=== PATIENT | female | born 1995 | race Two or more races ===

== ENCOUNTER 2018-09-23 08:07 | Emergency (ER) | payer MEDICAID ==
[~2018-09-23] VITALS: Ht 162.6 cm; Wt 78.0 kg
[~2018-09-23 08:07] MED LIST: PRENCAP15
[2018-09-23] MEDS ORDERED: SODIUM CHLORIDE 0.9% 2,000 ML IV ONE ×2 (09:53→10:00)
[2018-09-23] MEDS ORDERED: diphenhdrAMINE HCL 50 MG/1 ML VL IV ONE (10:00)
[2018-09-23 10:01] VITALS: BP 111/57
[2018-09-23 10:31] LABS: Basophils # (auto) 0 uL; Basophils % (auto) 0.5 % (0.0-2.0); Eosinophils # (auto) 0 uL; Eosinophils % (auto) 0.5 % (0.0-7.0); Hematocrit 37.3 % (36.0-46.0); Hemoglobin 12.7 g/dL (12.2-16.2); Lymphocytes # (auto) 1.4 uL; Lymphocytes % (auto) 21.6 % (10.0-50.0); Mean Corpuscular Hemoglobin 30.1 pg (28.0-32.0); Mean Corpuscular Hgb Conc. 34.1 g/dL (32.0-36.0); Mean Corpuscular Volume 88.1 fL (80.0-100.0); Monocytes # (auto) 0.5 uL; Monocytes % (auto) 7.5 % (0.0-12.0); Neutrophils # (auto) 4.7 uL; Neutrophils % (auto) 69.9 % (37.0-80.0); Platelet Count (auto) 215 10^3/uL (140-450); Red Blood Cells 4.23 10^6/uL (4.0-5.20); Red Cell Distribution Width 13.1 % (11.8-14.3); White Blood Cell 6.7 10^3/uL (4.4-10.8)
[2018-09-23 10:39] LABS: INR 0.93 (0.9-1.15); Partial Thromboplastin Time 31.6 sec (23.78-33.04)
[2018-09-23 10:43] LABS: Albumin 3.1 g/dL (3.4-5.0); Calcium 8.2 mg/dL (8.5-10.1); Potassium 3.4 mmol/L (3.5-5.1)
[2018-09-23 10:49] LABS: BUN/Creatinine Ratio 11.4; Bilirubin, Total 0.2 mg/dL (0.2-1.0); Total Protein 6.5 g/dL (6.4-8.2)
== END 2018-09-23 12:24 | disposition home or self-care (01) ==
LOC: ER 08:07
DX: O26.891 Other specified pregnancy related conditions, first trimester (principal); E86.0 Dehydration; R42 Dizziness and giddiness; Z3A.14 14 weeks gestation of pregnancy
CPT/HCPCS: 36415; 76801; 80053; 84702; 85025; 85610; 85730; 94761; 96361; 96374; 99284; J1200

== ENCOUNTER 2019-01-19 08:36 | Observation (INO) | payer MEDICAID ==
[2019-01-19 09:28] LABS: Alcohol, Urine < 3.0 mg/dL (0-5); Amphetamine Screen, Urine NEGATIVE (NEGATIVE); Barbiturate Scree,Urine NEGATIVE (NEGATIVE); Benzodiazephine Screen, Urine NEGATIVE (NEGATIVE); Cannabinoid Screen, Urine NEGATIVE (NEGATIVE); Cocaine Screen, Urine NEGATIVE (NEGATIVE); Opiate Scree,Urine NEGATIVE (NEGATIVE); Phencyclidine Screen, Urine NEGATIVE (NEGATIVE)
[2019-01-19 09:46] LABS: Urine Bacteria FEW /hpf (None Seen); Urine Blood Negative /uL (Negative); Urine WBC 4 /hpf (0 - 5)
== END 2019-01-19 09:25 | disposition home or self-care (01) | DRG 566 ==
LOC: LDRP 08:36
PROVIDERS: ADMIT Obstetrics & Gynecology; ATTEND Obstetrics & Gynecology
DX: O23.43 Unspecified infection of urinary tract in pregnancy, third trimester (principal); R30.0 Dysuria; O23.593 Infection of other part of genital tract in pregnancy, third trimester; Z3A.31 31 weeks gestation of pregnancy
CPT/HCPCS: 59025; 80307; 81001; 81002; G0378

== ENCOUNTER 2019-02-23 19:31 | Observation (INO) | payer MEDICAID ==
[~2019-02-23] VITALS: Ht 162.6 cm; Wt 77.1 kg
[2019-02-23] MEDS ORDERED: ONDANSETRON HCL 4 MG/2 ML VIAL IV PRN (20:15)
[2019-02-23] MEDS ORDERED: LACTATED RINGER'S 1,000 ML IV ONE (20:15)
[2019-02-23] MEDS ORDERED: ONDANSETRON HCL 4 MG/2 ML VIAL ONE (20:36)
== END 2019-02-23 22:46 | disposition home or self-care (01) | DRG 566 ==
LOC: LDRP 19:31
PROVIDERS: ADMIT Specialist; ATTEND Specialist
DX: O21.2 Late vomiting of pregnancy (principal); O26.893 Other specified pregnancy related conditions, third trimester; R19.7 Diarrhea, unspecified; Z3A.36 36 weeks gestation of pregnancy
CPT/HCPCS: 59025; 81002; 87210; G0378; J2405; 96365; 96366; 96374

== ENCOUNTER 2019-03-13 09:55 | Observation (INO) | payer MEDICAID ==
[~2019-03-13] VITALS: Ht 165.1 cm; Wt 84.8 kg
[2019-03-13] MEDS ORDERED: LACTATED RINGER'S 1,000 ML IV ONE (10:45)
[2019-03-13] MEDS ORDERED: TERBUTALINE SULFATE 1 MG/ML 1ML VIAL SC SCH (10:45)
== END 2019-03-13 12:10 | disposition home or self-care (01) | DRG 566 ==
LOC: LDRP 09:55
PROVIDERS: ADMIT Specialist; ATTEND Specialist
DX: O26.893 Other specified pregnancy related conditions, third trimester (principal); R10.9 Unspecified abdominal pain; Z3A.38 38 weeks gestation of pregnancy
CPT/HCPCS: 59025; 81002; 96372; G0378; J3105; 96361

== ENCOUNTER 2019-03-14 07:45 | Inpatient (IN) | payer MEDICAID ==
[2019-03-14] VITALS (15 sets, daily range): BP systolic 108–132; BP diastolic 54–96
[~2019-03-14] VITALS: Ht 165.1 cm; Wt 84.8 kg
[2019-03-14] MEDS: LACTATED RINGER'S 1,000 ML IV SCH ×2 (08:10→09:56)
[2019-03-14 09:03] LABS: Basophils # (auto) 0 uL; Hemoglobin 10.5 g/dL (12.2-16.2); Lymphocytes # (auto) 1.9 uL; Neutrophils # (auto) 5.5 uL; Nucleated Red Blood Cells % 0.1 %
[2019-03-14 09:05] LABS: Basophils % (auto) 0.5 % (0.0-2.0); Eosinophils # (auto) 0 uL; Eosinophils % (auto) 0.6 % (0.0-7.0); Hematocrit 32.2 % (36.0-46.0); Lymphocytes % (auto) 23.6 % (10.0-50.0); Mean Corpuscular Hgb Conc. 32.6 g/dL (32.0-36.0); Mean Corpuscular Volume 79.5 fL (80.0-100.0); Monocytes # (auto) 0.4 uL; Monocytes % (auto) 5.5 % (0.0-12.0); Neutrophils % (auto) 69.8 % (37.0-80.0); Platelet Count (auto) 190 10^3/uL (140-450); Red Blood Cells 4.05 10^6/uL (4.0-5.20); Red Cell Distribution Width 14.4 % (11.8-14.3); White Blood Cell 7.9 10^3/uL (4.4-10.8)
[2019-03-14 09:11] LABS: Mean Corpuscular Hemoglobin 25.9 pg (28.0-32.0)
[2019-03-14 09:15] LABS: Albumin 2.4 g/dL (3.4-5.0); BUN/Creatinine Ratio 14.3; Calcium 8.2 mg/dL (8.5-10.1)
[2019-03-14 09:18] LABS: Bilirubin, Total 0.2 mg/dL (0.2-1.0)
[2019-03-14 09:20] LABS: INR 0.85 (0.9-1.15); Partial Thromboplastin Time 25.7 sec (23.64-32.05)
[2019-03-14 09:46] LABS: Urine Bacteria NONE SEEN /hpf (None Seen); Urine Blood 2+ /uL (Negative); Urine Specific Gravity 1.012 (1.001-1.035); Urine WBC 1 /hpf (0 - 5)
[2019-03-14] MEDS ORDERED: MIDAZOLAM HCL 1MG/1ML-2 ML VIAL ONE (10:06)
[2019-03-14] MEDS ORDERED: fentaNYL CITRATE 100 MCG/2 ML VL ONE (10:06)
[2019-03-14] MEDS ORDERED: MORPHINE SULF(PF) 0.5MG/ML 10ML VIAL ONE (10:06)
[2019-03-14] MEDS ORDERED: TETRACAINE 1% INJ 2 ML VIAL IJ ONE (10:07)
[2019-03-14] MEDS ORDERED: ONDANSETRON HCL 4 MG/2 ML VIAL IV PRN ×2 (10:30→11:30)
[2019-03-14] MEDS ORDERED: MORPHINE SULFATE 4 MG/ML SYR/VIAL IV PRN (10:30)
[2019-03-14] MEDS ORDERED: KETOROLAC TROMETH 30 MG/ML 1ML VIAL IV PRN ×2 (10:30→11:30)
[2019-03-14] MEDS ORDERED: ceFAZolin 1GM/50ML 50 ML IV SCH (10:30)
[2019-03-14] MEDS ORDERED: ceFAZolin 1GM VL ONE (10:34)
[2019-03-14] MEDS ORDERED: OXYTOCIN 10 UNIT/ML 10ML VIAL ONE (10:34)
[2019-03-14] MEDS ORDERED: PHENYLEPHRINE HCL 10 MG/ML VL ONE (10:35)
[2019-03-14] MEDS ORDERED: MIDAZOLAM HCL 1MG/1ML-2 ML VIAL IV PRN (11:30)
[2019-03-14] MEDS ORDERED: ePHEDrine SULFATE 50 MG/ML AMP IV PRN (11:30)
[2019-03-14] MEDS ORDERED: LABETALOL HCL 5 MG/ML 4ML SYRINGE IV PRN (11:30)
[2019-03-14] MEDS ORDERED: HYDROmorphone HCL 2 MG/ML VL IV PRN ×2 (11:30)
[2019-03-14] MEDS ORDERED: NALBUPHINE HCL 10 MG/1ml INJECTION SUBCUT ONE (11:30)
[2019-03-14] MEDS ORDERED: NALOXONE HCL 0.4 MG/ML VIAL IV PRN (11:30)
[2019-03-14] MEDS ORDERED: ONDANSETRON HCL 4 MG/2 ML VIAL IV ONE (11:30)
[2019-03-14] MEDS ORDERED: DexAMETHasone SOD PHOS 10MG/1ML VIAL INJ IV PRN (11:30)
--- NOTE | 2019-03-14 12:15 | NUR ---
Post Op for LDRP: Received patient from PACU via bed to room 7B, report received from Shivani Gonzalez CONSUMER MARKETING ANALYST on stable patient . Patient A/A/Ox4, abdominal binder and bilateral SCD's are in place, 20 unitsPitocin in 1000ml bag placed on pump and infusing per order, incisional site dressing clean/dry/intact and Plummer Catheter to gravity draining clear yellow urine. Incentive Spirometer at bedside and instruction on proper use with return demonstration done by patient. Pts fundus is 2 below umbilicus, firm, scant rubra bleeding noted on pad. No distress noted. Will continue to monitor.
[2019-03-14] MEDS: diphenhdrAMINE HCL 50 MG/1 ML VL IV PRN ×3 (12:49→22:00)
--- NOTE | 2019-03-14 13:15 | NUR ---
PT REPORT GIVEN TO Talia WADSWORTH RN ON STABLE PATIENT, RELINQUISHED CARE. NO DISTRESS NOTED.
--- NOTE | 2019-03-14 14:00 | NUR ---
Report received from Talia Betancourt RN on stable pt. Assumed care.
--- NOTE | 2019-03-14 14:29 | NUR ---
PT MEDICATED WITH MORPHINE 2MG IVP PER ORDERS FOR INCISIONAL PAIN RATING 8/10.
[2019-03-14] MEDS ORDERED: ACETAMINOPHEN IV 1000 MG/100ML (10MG/ML) IV ONE (15:30)
[2019-03-14] MEDS: LACT. RINGERS/OXYTOCIN 20UNITS 1,000 ML IV SCH ×2 (16:13→17:01)
--- NOTE | 2019-03-14 18:15 | NUR ---
Report given to night KATY Richard on stable pt. Relinquished care. Addendum: 03/14/19 at 1843 by Carina Higgins RN Amended: Links added.
[2019-03-14] MEDS: ceFAZolin 1GM/50ML 50 ML IV SCH (18:29)
--- NOTE | 2019-03-14 19:40 | NUR ---
Called regarding patient's itching that is not relieved with current benedryl order. Orders received to increase Benedryl IV to 50mg. Will follow orders.
[2019-03-14 19:52] LABS: Eosinophils # (auto) 0 uL; Hemoglobin 9.8 g/dL (12.2-16.2)
[2019-03-14 19:57] LABS: Basophils # (auto) 0 uL; Basophils % (auto) 0.4 % (0.0-2.0); Eosinophils % (auto) 0.4 % (0.0-7.0); Hematocrit 30.1 % (36.0-46.0); Mean Corpuscular Hemoglobin 26.1 pg (28.0-32.0); Mean Corpuscular Hgb Conc. 32.6 g/dL (32.0-36.0); Mean Corpuscular Volume 79.9 fL (80.0-100.0); Monocytes # (auto) 0.6 uL; Monocytes % (auto) 5.2 % (0.0-12.0); Neutrophils # (auto) 8.5 uL; Nucleated Red Blood Cells % 0.1 %; Platelet Count (auto) 172 10^3/uL (140-450); Red Blood Cells 3.77 10^6/uL (4.0-5.20); Red Cell Distribution Width 14.4 % (11.8-14.3); White Blood Cell 11.2 10^3/uL (4.4-10.8)
[2019-03-14] MEDS ORDERED: diphenhdrAMINE HCL 50 MG/1 ML VL IV PRN (21:00)
[2019-03-15] MEDS ORDERED: BISACODYL 10 MG RECT SUPP PR PRN (00:45)
[2019-03-15] MEDS: HYDROcodone-ACET 5/325MG TAB PO PRN ×5 (00:59→22:11)
[2019-03-15 03:00] VITALS: BP 114/64
--- NOTE | 2019-03-15 04:00 | NUR ---
Ambulation: Patient OOB with standby assistance by RN. Plummer catheter remains in place per 's orders. Patient ambulates in the room and brushes teeth at this time. Pericare teaching provided with returned demonstration by patient. Clean gown provided and bed linen changed. Patient ambulated back to bed with steady gait and no distress noted.
[2019-03-15] MEDS: ceFAZolin 1GM/50ML 50 ML IV SCH ×2 (04:31→12:41)
[2019-03-15] MEDS: SIMETHICONE 80 MG CHEWABLE TABLET PO SCH ×4 (05:43→22:11)
[2019-03-15 06:08] LABS: RPR Non Reactive (Non Reactive)
[2019-03-15 06:40] LABS: Basophils # (auto) 0 uL; Basophils % (auto) 0.4 % (0.0-2.0); Eosinophils # (auto) 0 uL; Eosinophils % (auto) 0.5 % (0.0-7.0); Hemoglobin 9.8 g/dL (12.2-16.2); Lymphocytes # (auto) 1.6 uL; Lymphocytes % (auto) 18.4 % (10.0-50.0); Mean Corpuscular Hemoglobin 26.1 pg (28.0-32.0); Mean Corpuscular Hgb Conc. 32.7 g/dL (32.0-36.0); Mean Corpuscular Volume 79.9 fL (80.0-100.0); Monocytes # (auto) 0.5 uL; Monocytes % (auto) 6.2 % (0.0-12.0); Neutrophils # (auto) 6.6 uL; Neutrophils % (auto) 74.5 % (37.0-80.0); Platelet Count (auto) 155 10^3/uL (140-450); Red Blood Cells 3.75 10^6/uL (4.0-5.20); Red Cell Distribution Width 14.5 % (11.8-14.3); White Blood Cell 8.8 10^3/uL (4.4-10.8)
[2019-03-15 07:00] VITALS: BP 111/67
[2019-03-15] MEDS: DOCUSATE SOD 100 MG CAP PO SCH ×2 (10:00→22:00)
[2019-03-15 11:06] VITALS: BP 117/77
--- NOTE | 2019-03-15 12:05 | NUR ---
REPORT GIVEN TO AMANDA Parrish RN PATIENT IN STABLE CONDITION.
--- NOTE | 2019-03-15 12:05 | NUR ---
PT REPORT RECEIVED FROM Luis CARRILLO RN ON STABLE PATIENT, ASSUMING CARE. NO S/S OF DISTRESS OR SOB NOTED.
[2019-03-15 15:00] VITALS: BP 118/74
[2019-03-15] MEDS: IBUPROFEN 800 MG TAB PO PRN (15:15)
--- NOTE | 2019-03-15 18:10 | NUR ---
Received report assumed care from Danna Giraldo RN.
--- NOTE | 2019-03-15 18:30 | NUR ---
Hearing screen in process, unable to initiate assessment, will follow up
[2019-03-15 19:00] VITALS: BP 118/67
--- NOTE | 2019-03-15 22:17 | NUR ---
Patient refused colace. "It gave me bad cramps earlier today". colace withheld
[2019-03-15 23:10] VITALS: BP 111/65
--- NOTE | 2019-03-16 00:36 | NUR ---
Reassessed patients respiratory rate. 18 bpm
[2019-03-16 03:00] VITALS: BP 123/71
[2019-03-16] MEDS: HYDROcodone-ACET 5/325MG TAB PO PRN ×3 (03:04→19:29)
[2019-03-16 07:00] VITALS: BP 145/85
--- NOTE | 2019-03-16 07:00 | NUR ---
Assessment complete. Board updated. Updated on poc, pain management, incision care, purpose of abdominal binder, use IS 10x hour to prevent pna, ambulate in hallway to reduce the risk of blood clots. Verbalized understanding of all information. Abdominal incision open to air, clean, dry, no redness, no ecchimosis, no edema, no drainage noted, edges well approximated. [address] Abdominal binder on. Call light in reach. Sd rails up x2. bed low.
[2019-03-16] MEDS: SIMETHICONE 80 MG CHEWABLE TABLET PO SCH ×4 (07:26→22:12)
--- NOTE | 2019-03-16 07:30 | NUR ---
pt complain of pain. See mar.
[2019-03-16] MEDS: IBUPROFEN 800 MG TAB PO PRN ×2 (07:31→16:41)
[2019-03-16] MEDS: DOCUSATE SOD 100 MG CAP PO SCH ×2 (09:46→22:00)
--- NOTE | 2019-03-16 09:46 | NUR ---
Pt refused stool softner. Stated it causes her to have severe abdominal cramping.
[2019-03-16 11:00] VITALS: BP 121/61
[2019-03-16 15:00] VITALS: BP 125/76
--- NOTE | 2019-03-16 17:00 | NUR ---
IV removal IV DC'd with sterile technique, catheter fully intact. Pressure dressing applied to site. Patient tolerated procedure well. Discharged with aftercare instructions per MD.
[2019-03-16 19:00] VITALS: BP 123/70
[2019-03-16 22:55] VITALS: BP 118/63
[2019-03-17] MEDS: IBUPROFEN 800 MG TAB PO PRN (01:20)
[2019-03-17 03:00] VITALS: BP 109/65
[2019-03-17] MEDS: HYDROcodone-ACET 5/325MG TAB PO PRN (03:57)
[2019-03-17] MEDS: SIMETHICONE 80 MG CHEWABLE TABLET PO SCH (06:15)
--- NOTE | 2019-03-17 06:45 | NUR ---
Assessment completed. Updated on POC, pain management, need to ambulate, pericare, incision care, orders to removed clary, s/s of infection, breast care, possible dc home today. Verbalized understanding of all information. Board updated, call light in reach, sd rails up x2, bed low.
[2019-03-17 07:00] VITALS: BP 114/64
--- NOTE | 2019-03-17 07:00 | NUR ---
Dr Calvin made rounds with KATY Mcintosh. Orders received.
--- NOTE | 2019-03-17 07:50 | NUR ---
C/S Staple Removal DC Note: Orders received to remove clary. Clary removed using sterile technique. Lower abdominal incision approximated, no drainage/redness/inflammation visualized at time of removal. Steri-strips applied. Education provided on incisional care. Patient verbalized understanding and willingness to comply to instructions/teaching provided.
--- NOTE | 2019-03-17 09:00 | NUR ---
Discharge: Discharge instructions given as ordered. Pt encouraged to follow up with DIRECTOR FOOD AND BEVERAGE as instructed. All questions and concerns addressed. Patient verbalized understanding. Medication reconciliation completed and copy given to patient. All required/requested vaccines given and copies of vaccinations given to patient. Patient encouraged to prepare to depart unit.
--- NOTE | 2019-03-17 09:20 | NUR ---
Discharge: Patient taken to vehicle via ambulation with all personal belongings, accompanied by staff and family member. No distress noted at time of departure, no adverse changes in status since initial assessment.
== END 2019-03-17 09:15 | disposition home or self-care (01) | DRG 540 ==
LOC: LDRP 07:45
PROVIDERS: ADMIT Obstetrics & Gynecology; ATTEND Obstetrics & Gynecology
PROC: 0UL50CZ Occlusion of Right Fallopian Tube with Extraluminal Device, Open Approach (ICD-10-PCS; 2019-03-14)
PROC: 10D00Z1 Extraction of Products of Conception, Low, Open Approach (ICD-10-PCS; principal; 2019-03-14 10:15)
DX: O34.211 Maternal care for low transverse scar from previous cesarean delivery (principal); N73.6 Female pelvic peritoneal adhesions (postinfective); Z30.2 Encounter for sterilization; Z37.0 Single live birth; O99.89 Other specified diseases and conditions complicating pregnancy, childbirth and the puerperium; Z3A.39 39 weeks gestation of pregnancy
CPT/HCPCS: 36415; 51702; 59025; 80053; 81001; 81002; 85025; 85610; 85730; 86592; 86850; 86900; 86901; 94760; 96361; 96374; 96375; G0378; J0131; J0690; J2250; J2590

== ENCOUNTER 2020-03-06 20:05 | Emergency (ER) | payer MEDICAID ==
[~2020-03-06] VITALS: Ht 165.1 cm; Wt 85.7 kg
[2020-03-06 20:36] LABS: Urine WBC None Seen /hpf (0 - 5)
[2020-03-06 20:48] LABS: Urine Bacteria NONE SEEN /hpf (None Seen); Urine Blood 2+ /uL (Negative); Urine Mucus FEW (None Seen); Urine Specific Gravity 1.035 (1.001-1.035)
[2020-03-06 21:48] LABS: Basophils # (auto) 0.1 10 ^3/uL (0-0.2); Eosinophils # (auto) 0.2 10 ^3/uL (0-0.8); Hemoglobin 13.4 g/dL (12.2-16.2); Monocytes # (auto) 0.6 10 ^3/uL (0-1.3); Neutrophils # (auto) 5.7 10 ^3/uL (1.6-8.6); Nucleated Red Blood Cells % 0.2 %; White Blood Cell 9.7 10^3/uL (4.4-10.8)
[2020-03-06 21:49] LABS: Basophils % (auto) 0.6 % (0.0-2.0); Eosinophils % (auto) 1.6 % (0.0-7.0); Hematocrit 42.6 % (36.0-46.0); Lymphocytes # (auto) 3.3 10 ^3/uL (0.4-5.4); Lymphocytes % (auto) 33.4 % (10.0-50.0); Mean Corpuscular Hgb Conc. 31.4 g/dL (32.0-36.0); Mean Corpuscular Volume 82.6 fL (80.0-100.0); Monocytes % (auto) 6.3 % (0.0-12.0); Neutrophils % (auto) 58.1 % (37.0-80.0); Platelet Count (auto) 283 10^3/uL (140-450); Red Blood Cells 5.16 10^6/uL (4.0-5.20); Red Cell Distribution Width 16.3 % (11.8-14.3)
[2020-03-06 22:07] LABS: Albumin 4.4 g/dL (3.4-5.0); BUN/Creatinine Ratio 15.1; Calcium 8.9 mg/dL (8.5-10.1); Potassium 3.4 mmol/L (3.5-5.1)
[2020-03-06 22:09] LABS: Bilirubin, Total 0.3 mg/dL (0.2-1.0); Total Protein 8.6 g/dL (6.4-8.2)
[2020-03-07 01:04] VITALS: BP 118/60
== END 2020-03-07 01:39 | disposition home or self-care (01) ==
LOC: ER 20:05
DX: K80.20 Calculus of gallbladder without cholecystitis without obstruction (principal)
CPT/HCPCS: 36415; 76705; 80053; 81001; 84702; 85025

== ENCOUNTER 2022-08-16 02:06 | Emergency (ER) | payer BC, MEDICAID ==
[~2022-08-16] VITALS: Ht 165.1 cm; Wt 72.0 kg
[2022-08-16 02:51] LABS: Basophils # (auto) 0 10 ^3/uL (0-0.2); Basophils % (auto) 0.2 % (0.0-2.0); Eosinophils # (auto) 0.1 10 ^3/uL (0-0.8); Eosinophils % (auto) 0.7 % (0.0-7.0); Hematocrit 42.8 % (36.0-46.0); Hemoglobin 14.6 g/dL (12.2-16.2); Lymphocytes % (auto) 7.4 % (10.0-50.0); Mean Corpuscular Hemoglobin 28.9 pg (28.0-32.0); Mean Corpuscular Hgb Conc. 34.2 g/dL (32.0-36.0); Mean Corpuscular Volume 84.5 fL (80.0-100.0); Monocytes # (auto) 0.7 10 ^3/uL (0-1.3); Monocytes % (auto) 5.2 % (0.0-12.0); Neutrophils # (auto) 11.5 10 ^3/uL (1.6-8.6); Neutrophils % (auto) 86.5 % (37.0-80.0); Red Blood Cells 5.06 10^6/uL (4.0-5.20); Red Cell Distribution Width 13.6 % (11.8-14.3); White Blood Cell 13.3 10^3/uL (4.4-10.8)
[2022-08-16 03:10] LABS: Albumin 4.1 g/dL (3.4-5.0); BUN/Creatinine Ratio 14.9; Calcium 8.9 mg/dL (8.5-10.1); Potassium 3.8 mmol/L (3.5-5.1)
[2022-08-16 03:14] LABS: Bilirubin, Total 0.4 mg/dL (0.2-1.0); Total Protein 7.6 g/dL (6.4-8.2)
[2022-08-16 03:26] LABS: Urine Bacteria NONE SEEN /hpf (None Seen); Urine Mucus FEW (None Seen); Urine WBC 10 /hpf (0 - 5)
[2022-08-16 03:30] LABS: Urine Blood 4+ /uL (Negative)
[2022-08-16] MEDS ORDERED: NITROFURANTOIN 100 mg CAP PO ONE (05:45)
[2022-08-16] MEDS ORDERED: NITR-87 PO (05:47)
[2022-08-16 05:50] VITALS: BP 119/84
== END 2022-08-16 06:01 | disposition home or self-care (01) ==
LOC: ER 02:06
DX: N39.0 Urinary tract infection, site not specified (principal); R11.2 Nausea with vomiting, unspecified
CPT/HCPCS: 36415; 74176; 80053; 81001; 81025; 83690; 85025

== ENCOUNTER 2024-12-31 15:43 | Emergency (ER) | payer MEDICAID, OTHER ==
[~2024-12-31 15:43] MED LIST changes: +NITR-87 PO; -PRENCAP15
--- NOTE | 2024-12-31 16:15 | ED.PDOC ---
HPI (NEURO) HPI Comments 39y F who presents to the ED via EMS for chief complaint of headahce. 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 Pt states she suddenly felt weak as if she was going to pass out but did not have any associated syncopal episode. Pt states after this vomiting episode, she started to have headache which has persisted since with associated generalized weakness and staff called EMS after pt came out of restroom. EMS states pt had stable vitals upon arrival and upon arrival to the ED and states was noted to be dry heaving in ambulance throughout prior to ED arrival with no noted vomiting episode. Pt now in the ED, is a0x04 but appear somnolent and otherwise states she is having a generalized headache but denies any other symptoms at this time. Time Seen by MD: 16:10 Reviewed Notes: Supervisor Composing Room Notes, Medications Information Source: Patient, Emergency Med Personnel Mode of Arrival: EMS Brought in by: EMS Severity: Moderate Dizziness/Weakness Severity: Does not affect activitie Headache Severity: Moderate Timing: Hours Duration: Since onset Prehospital treatment: None Headache Location: Generalized Weakness Location: Generalized Onset: At rest Circumstances: Spontaneous Symptoms: Faintness, Near syncope, Weakness History of: None Modifying factors: Nothing Associated Signs and Symptoms: Headache, Nausea, Vomiting Past Medical History PAST MEDICAL HISTORY: Denies 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: 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 History: Denies all 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 TECHNICIAN Hx Family History Family History: Unknown Social History Smoker: Non-Smoker Alcohol: Denies ETOH Use Drugs: Denies Drug Use Lives In: Home Constitutional: denies: chills, diaphoresis, fatigue, fever, malaise, sweats, weakness, others EENTM: denies: blurred vision, double vision, ear bleeding, ear discharge, ear drainage, ear pain, ear ringing, eye pain, eye redness, hearing loss, mouth pain, mouth swelling, nasal discharge, nose bleeding, nose congestion, nose pain, photophobia, tearing, throat pain, throat swelling, voice changes, others Respiratory: denies: cough, hemoptysis, orthopnea, SOB at rest, shortness of breath, SOB with excertion, stridor, wheezing, others Cardiovascular: denies: chest pain, dizzy spells, diaphoresis, Dyspnea on exertion, edema, irregular heart beat, left arm pain, lightheadedness, palpitations, PND, syncope, others Gastrointestinal: reports: hematemesis, nausea, vomiting; denies: abdomen distended, abdominal pain, blood streaked bowels, constipated, diarrhea, dysphagia, difficulty swallowing, melena, poor appetite, poor fluid intake, rectal bleeding, rectal pain, others Genitourinary: denies: abnormal vagina bleeding, burning, dyspareunia, dysuria, flank pain, frequency, hematuria, incontinence, pain, , vagina discharge, urgency, others Neurological: denies: dizziness, fainting, headache, left sided numbness, left sided weakness, numbness, paresthesia, pre-existing deficit, right sided numbness, right sided weakness, seizure, speech problems, tingling, tremors, weakness, others Musculoskeletal: denies: back pain, gout, joint pain, joint swelling, muscle pain, muscle stiffness, neck pain, others Integumetry: denies: bruises, change in color, change in hair/nails, dryness, laceration, lesions, lumps, rash, wounds, others Allergic/Immunocompromised: denies: Difficulty Healing, Frequent Infections, Hives, Itching, others Hematologic/Lymphatic: denies: anemia, blood clots, easy bleeding, easy bruising, swollen glands, others Endocrine: denies: excessive hunger, excessive sweating, excessive thirst, excessive urination, flushing, intolerance to cold, intolerance to heat, unexplained weight gain, unexplained weight loss, others Psychiatric: denies: anxiety, bipolar disorder, depression, hopeless, panic disorder, schizophrenia, sleepless, suicidal, others All Other Systems: Reviewed and Negative Physical Exam General Appearance: Moderate Distress HEENT: Normal ENT Inspection, Pharynx Normal, TMs Normal Neck: Full Range of Motion, Non-Tender, Normal, Normal Inspection Respiratory: Chest Non-Tender, Lungs Clear, No Accessory Muscle Use, No Respiratory Distress, Normal Breath Sounds Cardiovascular: No Edema, No JVD, No Murmur, No Gallop, Normal Peripheral Pulses, Regular Rate/Rhythm Breast Exam: Deferred Gastrointestinal: No Organomegaly, Non Tender, No Pulsatile Mass, Normal Bowel Sounds, Soft Genitalia: Deferred Pelvic: Deferred Rectal: Deferred Extremities: No calf tenderness, Normal capillary refill, Normal inspection, Normal range of motion, Non-tender, No pedal edema Musculoskeletal : Apperance: Normal Neurologic: photographer portrait II-XII nml as Tested, No Motor Deficits, Normal Affect, No Sensory Deficits, Other (The patient's seems somewhat confused see me in somewhat postictal) Cerebellar Function: Unable to Test Reflexes: Normal Skin: Dry, Normal Color, Warm Lymphatic: No Adenopathy Was a procedure done? Was a procedure done?: No Differential Diagnosis (SZ) General Weakness: Anemia, Dehydration, Electrolyte imbalance, Encephalopathy, Hypoglycemia, Hypotension, Hypovolemia, Vertigo: central, Vertigo: peripheral, Other (UTI,) Headache: Migraine, Closed Head Injury X-Ray, Labs, Meds, VS Vital Signs Date Time Temp Pulse Resp B/P (MAP) Pulse Ox O2 Delivery O2 Flow Rate FiO2 12/31/24 16:58 97.2 116 20 136/86 (103) 99 97.2 12/31/24 16:42 98 20 98 Room Air* 0 21 Lab Test 12/31/24 18:40 12/31/24 16:32 Range/Units Urine Color Colorless Yellow Urine Clarity Clear Clear Urine pH 7.0 5.0-9.0 Urine Specific Huger 1.004 1.001-1.035 Urine Protein Negative Negative Urine Ketones 1+ H Negative Urine Blood Negative Negative /uL Urine Nitrite Negative Negative Urine Bilirubin Negative Negative Urine Urobilinogen Normal Negative mg/dL Urine Leukocyte Esterase Negative Negative /uL Urine RBC None seen 0 - 4 /hpf Urine Microscopic WBC 1 0-5 /HPF Urine Squamous Epithelial Cells Few <5 /hpf Urine Bacteria None seen None Seen /hpf Urine Glucose Normal Normal mg/dL Urine Test Negative Negative Urine Opiates Screen Neg NEGATIVE Urine Fentanyl Screen Neg NEGATIVE Urine Barbiturates Screen Neg NEGATIVE Urine Phencyclidine Screen Neg NEGATIVE Urine Amphetamines Screen Neg NEGATIVE Urine Benzodiazepines Screen Neg NEGATIVE Urine Cocaine Screen Neg NEGATIVE Urine Cannabinoids Screen Neg NEGATIVE White Blood Count 13.4 H 4.4-10.8 10^3/uL Red Blood Count 4.56 4.0-5.20 10^6/uL Hemoglobin 14.0 12.2-16.2 g/dL Hematocrit 42.0 36.0-46.0 % Mean Corpuscular Volume 92.1 80.0-100.0 fL Mean Corpuscular Hemoglobin 30.8 28.0-32.0 pg Mean Corpuscular Hemoglobin Concent 33.4 32.0-36.0 g/dL Red Cell Distribution Width 13.0 11.8-14.3 % Platelet Count 282 140-450 10^3/uL Mean Platelet Volume 7.9 6.9-10.8 fL Neutrophils (%) (Auto) 81.6 H 37.0-80.0 % Lymphocytes (%) (Auto) 13.7 10.0-50.0 % Monocytes (%) (Auto) 4.2 0.0-12.0 % Eosinophils (%) (Auto) 0.2 0.0-7.0 % Basophils (%) (Auto) 0.3 0.0-2.0 % Neutrophils # (Auto) 10.9 H 1.6-8.6 10 ^3/uL Lymphocytes # (Auto) 1.8 0.4-5.4 10 ^3/uL Monocytes # (Auto) 0.6 0-1.3 10 ^3/uL Eosinophils # (Auto) 0 0-0.8 10 ^3/uL Basophils # (Auto) 0 0-0.2 10 ^3/uL Nucleated Red Blood Cells 0.0 % Sodium Level 141 136-145 mmol/L Potassium Level 3.5 3.5-5.1 mmol/L Chloride Level 106 98-107 mmol/L Carbon Dioxide Level 24 20-31 mmol/L Anion Gap 11 5-15 Blood Urea Nitrogen 6 L 9-23 mg/dL Creatinine 0.76 0.550-1.02 mg/dL Glomerular Filtration Rate Calc 102 >90 mL/min BUN/Creatinine Ratio 7.9 L 10.0-20.0 Serum Glucose 104 74-106 mg/dL Calcium Level 9.8 8.7-10.4 mg/dL Current Medications Medications (Trade) Dose Ordered Sig/Rhea Route Start Time Stop Time Status Last Admin Sodium Chloride 1,000 ml @ 1,000 mls/hr Q1H ONCE IV 12/31/24 16:15 12/31/24 17:14 DC 12/31/24 16:45 Lorazepam (Ativan Inj) 1 mg ONCE ONCE IV 12/31/24 16:15 12/31/24 16:16 DC 12/31/24 16:56 IV Hep-Lock was established The patient was given a 1 L bolus of normal saline The patient was given Ativan 1 mg IV push The patient's CBC and chemistry panel are within normal limits The urine test is negative and the urine tox is negative The patient was now awake and is stating that she has a history of three seizures in the past but has seen a neurologist and had a complete workup which was negative We encouraged her to follow up with her doctor for possible seizures. The patient understands and agrees with the management. The patient was being discharged with a friend. The patient was complaining of some jaw pain so was given acetaminophen 650 mg by Time of 1ST Reevaluation: 16:40 Reevaluation 1ST: Unchanged Time of 2ND Reevaluation: 20:21 Reevaluation 2ND: Resolved Patient Education/Counseling: Diagnosis, Treatment, Prognosis, Need For Follow Up Family Education/Counseling: Diagnosis, Treatment, Prognosis, Need For Follow Up Departure 1 Departure Time of Disposition: 20:22 Impression: Primary Impression: Seizure-like activity Disposition: 01 HOME / SELF CARE / HOMELESS Condition: Fair Discharged With: Self, Friend Critical Care Note Critical Care Time?: No Stability Stability form required: No Heart Score Heart Score: Heart Score Response (Comments) Value History N/A 0 EKG N/A 0 Age N/A 0 Risk Factors N/A 0 Troponin N/A 0 Total 0 I personally scribed for ELLEN RAPP MD ([email or web address]) on 12/31/24 at 16:15. Electronically submitted by Chantal Casillas ([email or web address]). ELLEN RAPP MD Dec 31, 2024 16:15
[2024-12-31 16:42] VITALS: PULSE 98; RESP 20; O2SAT 98
[2024-12-31] MEDS: SODIUM CHLORIDE 0.9% 1,000 ML IV ONE (16:45)
[2024-12-31 16:47] LABS: Basophils # (auto) 0 10 ^3/uL (0-0.2); Basophils % (auto) 0.3 % (0.0-2.0); Eosinophils # (auto) 0 10 ^3/uL (0-0.8); Eosinophils % (auto) 0.2 % (0.0-7.0); Lymphocytes # (auto) 1.8 10 ^3/uL (0.4-5.4); Lymphocytes % (auto) 13.7 % (10.0-50.0); Mean Corpuscular Hemoglobin 30.8 pg (28.0-32.0); Mean Corpuscular Hgb Conc. 33.4 g/dL (32.0-36.0); Mean Corpuscular Volume 92.1 fL (80.0-100.0); Monocytes # (auto) 0.6 10 ^3/uL (0-1.3); Monocytes % (auto) 4.2 % (0.0-12.0); Neutrophils # (auto) 10.9 10 ^3/uL (1.6-8.6); Neutrophils % (auto) 81.6 % (37.0-80.0); Platelet Count (auto) 282 10^3/uL (140-450); Red Blood Cells 4.56 10^6/uL (4.0-5.20); White Blood Cell 13.4 10^3/uL (4.4-10.8)
[2024-12-31] MEDS: LORazepam 2MG/ML-1ML VIAL IV ONE (16:56)
[2024-12-31 16:57] LABS: Chloride 106 mmol/L (98-107); Potassium 3.5 mmol/L (3.5-5.1); Sodium 141 mmol/L (136-145)
[2024-12-31 16:58] LABS: Anion Gap 11 (5-15); Calcium 9.8 mg/dL (8.7-10.4); Carbon Dioxide 24 mmol/L (20-31)
[2024-12-31 17:03] LABS: BUN/Creatinine Ratio 7.9 (10.0-20.0); Blood Urea Nitrogen 6 mg/dL (9-23); Glucose 104 mg/dL (74-106)
[2024-12-31 19:22] LABS: Urine Bacteria None Seen /hpf (None Seen)
[2024-12-31 19:48] LABS: Urine Blood Negative /uL (Negative); Urine Clarity Clear (Clear); Urine Color Colorless (Yellow); Urine Protein, UAD Negative (Negative); Urine Specific Gravity 1.004 (1.001-1.035); Urine Squamous Epithelial Cell FEW /hpf (<5); Urine Urobilinogen Normal (Negative); Urine WBC 1 /HPF (0-5)
[2024-12-31 19:56] LABS: Amphetamine Screen, Urine Neg (NEGATIVE); Barbiturate Scree,Urine Neg (NEGATIVE); Benzodiazephine Screen, Urine Neg (NEGATIVE); Cannabinoid Screen, Urine Neg (NEGATIVE); Cocaine Screen, Urine Neg (NEGATIVE); Opiate Scree,Urine Neg (NEGATIVE); Phencyclidine Screen, Urine Neg (NEGATIVE)
[2024-12-31 20:32] VITALS: BP 132/84; PULSE 105; RESP 20; TEMP 97.6; O2SAT 10
[2024-12-31] MEDS: ACETAMINOPHEN 325 MG TAB PO ONE (20:32)
== END 2024-12-31 20:35 | disposition home or self-care (01) ==
LOC: MERGE 15:43 → ER 15:43 → EDBD 15:43 → ER 20:35
DX: R51.9 Headache, unspecified (principal); R11.10 Vomiting, unspecified; R53.1 Weakness
CPT/HCPCS: 36415; 80048; 80307; 81001; 81025; 85025; 96361; 96374; 99283; J2060; J7030

== ENCOUNTER 2025-03-30 06:14 | Emergency (ER) | payer MEDICAID ==
[~2025-03-30] VITALS: Ht 165.1 cm; Wt 58.0 kg
--- NOTE | 2025-03-30 06:38 | ED.PDOC ---
History of Present Illness HPI Comments 29-year-old female brought in by EMS presents with a chief complaint of nausea, vomiting, and diarrhea x since 2100 last night. Patient states that she is currently not having any abdominal pain. Patient is actively dry heaving on EMS gurney. Patient mentions that she is on Wegovy and has been for the past 6 months. Patient was given 8mg of Zofran and 500cc IVF by EMS en route. Time Seen by MD: 06:30 Primary Care Provider: NO PCP Reviewed Notes: Medications, Allergies Allergies: Coded Allergies: NO KNOWN ALLERGIES (Unverified , 06/02/13) Home Meds Active Scripts Nitrofurantoin Monohydrate Mac (Macrobid) 100 Mg Cap, 100 MG PO BID, #14 CAP Prov:DENISSE GONGORA MD 08/16/22 Information Source: Patient, Emergency Med Personnel Mode of Arrival: EMS Severity: Moderate Timing: Hours Duration: Since onset Prehospital treatment: Colliery Clerk, IVF, Treatment Past Medical History PAST MEDICAL HISTORY: UTI'S 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: OPTOMETRIST/PRACTICE OWNER History: No Pertinent OPTOMETRIST/PRACTICE OWNER History Family History Family History: Reviewed,noncontributory to illness Social History Smoker: Non-Smoker Alcohol: Denies ETOH Use Drugs: Denies Drug Use Lives In: Home Constitutional: denies: chills, diaphoresis, fatigue, fever, malaise, sweats, weakness, others EENTM: denies: blurred vision, double vision, ear bleeding, ear discharge, ear drainage, ear pain, ear ringing, eye pain, eye redness, hearing loss, mouth pain, mouth swelling, nasal discharge, nose bleeding, nose congestion, nose pain, photophobia, tearing, throat pain, throat swelling, voice changes, others Respiratory: denies: cough, hemoptysis, orthopnea, SOB at rest, shortness of breath, SOB with excertion, stridor, wheezing, others Cardiovascular: denies: chest pain, dizzy spells, diaphoresis, Dyspnea on exertion, edema, irregular heart beat, left arm pain, lightheadedness, palpitations, PND, syncope, others Gastrointestinal: reports: diarrhea, nausea, vomiting; denies: abdomen distended, abdominal pain, blood streaked bowels, constipated, dysphagia, difficulty swallowing, hematemesis, melena, poor appetite, poor fluid intake, rectal bleeding, rectal pain, others Genitourinary: denies: abnormal vagina bleeding, burning, dyspareunia, dysuria, flank pain, frequency, hematuria, incontinence, pain, , vagina discharge, urgency, others Neurological: denies: dizziness, fainting, headache, left sided numbness, left sided weakness, numbness, paresthesia, pre-existing deficit, right sided numbness, right sided weakness, seizure, speech problems, tingling, tremors, weakness, others Musculoskeletal: denies: back pain, gout, joint pain, joint swelling, muscle pain, muscle stiffness, neck pain, others Integumetry: denies: bruises, change in color, change in hair/nails, dryness, laceration, lesions, lumps, rash, wounds, others Allergic/Immunocompromised: denies: Difficulty Healing, Frequent Infections, Hives, Itching, others Hematologic/Lymphatic: denies: anemia, blood clots, easy bleeding, easy bruising, swollen glands, others Endocrine: denies: excessive hunger, excessive sweating, excessive thirst, excessive urination, flushing, intolerance to cold, intolerance to heat, unexplained weight gain, unexplained weight loss, others Psychiatric: denies: anxiety, bipolar disorder, depression, hopeless, panic disorder, schizophrenia, sleepless, suicidal, others All Other Systems: Reviewed and Negative Physical Exam General Appearance: No Apparent Distress, Thin, Other (Appears uncomfortable) HEENT: Normal ENT Inspection, Pharynx Normal, TMs Normal Neck: Full Range of Motion, Non-Tender, Normal, Normal Inspection Respiratory: Chest Non-Tender, Lungs Clear, No Accessory Muscle Use, No Respiratory Distress, Normal Breath Sounds Cardiovascular: No Edema, No JVD, No Murmur, No Gallop, Normal Peripheral Pulses, Tachycardia Breast Exam: Deferred Gastrointestinal: No Organomegaly, Non Tender, No Pulsatile Mass, Normal Bowel Sounds, Soft Genitalia: Deferred Pelvic: Deferred Rectal: Deferred Extremities: No calf tenderness, Normal capillary refill, Normal inspection, Normal range of motion, Non-tender, No pedal edema Musculoskeletal : Apperance: Normal Neurologic: Alert, military professional II-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 Was a procedure done?: No Differential Dx Considerations may include: Gastroenteritis, electrolyte abnormality, acute cystitis, viral syndrome X-Ray, Labs, Meds, VS Vital Signs Date Time Temp Pulse Resp B/P (MAP) Pulse Ox O2 Delivery O2 Flow Rate FiO2 03/30/25 07:26 98.4 79 16 98/63 (75) 99 98.4 03/30/25 07:26 79 16 99 Room Air 03/30/25 06:14 97.9 94 20 93/60 (71) 99 97.9 Lab Test 03/30/25 06:55 Range/Units White Blood Count 11.0 H 4.4-10.8 10^3/uL Red Blood Count 4.57 4.0-5.20 10^6/uL Hemoglobin 14.1 12.2-16.2 g/dL Hematocrit 40.9 36.0-46.0 % Mean Corpuscular Volume 89.6 80.0-100.0 fL Mean Corpuscular Hemoglobin 30.9 28.0-32.0 pg Mean Corpuscular Hemoglobin Concent 34.5 32.0-36.0 g/dL Red Cell Distribution Width 13.3 11.8-14.3 % Platelet Count 295 140-450 10^3/uL Mean Platelet Volume 7.8 6.9-10.8 fL Neutrophils (%) (Auto) 83.2 H 37.0-80.0 % Lymphocytes (%) (Auto) 12.8 10.0-50.0 % Monocytes (%) (Auto) 3.4 0.0-12.0 % Eosinophils (%) (Auto) 0.2 0.0-7.0 % Basophils (%) (Auto) 0.4 0.0-2.0 % Neutrophils # (Auto) 9.1 H 1.6-8.6 10 ^3/uL Lymphocytes # (Auto) 1.4 0.4-5.4 10 ^3/uL Monocytes # (Auto) 0.4 0-1.3 10 ^3/uL Eosinophils # (Auto) 0 0-0.8 10 ^3/uL Basophils # (Auto) 0 0-0.2 10 ^3/uL Nucleated Red Blood Cells 0.1 % Sodium Level 145 136-145 mmol/L Potassium Level 3.6 3.5-5.1 mmol/L Chloride Level 108 H 98-107 mmol/L Carbon Dioxide Level 22 20-31 mmol/L Anion Gap 15 5-15 Blood Urea Nitrogen 6 L 9-23 mg/dL Creatinine 0.78 0.550-1.02 mg/dL Glomerular Filtration Rate Calc 105 >90 mL/min BUN/Creatinine Ratio 7.7 L 10.0-20.0 Serum Glucose 108 H 74-106 mg/dL Calcium Level 10.2 8.7-10.4 mg/dL Current Medications Medications (Trade) Dose Ordered Sig/Rhea Route Start Time Stop Time Status Last Admin Sodium Chloride 1,000 ml @ 1,000 mls/hr Q1H ONCE IV 03/30/25 06:45 03/30/25 07:44 DC 03/30/25 08:07 Metoclopramide HCl (Reglan Injection) 10 mg ONCE ONCE IV 03/30/25 06:45 03/30/25 06:46 DC 03/30/25 08:07 Famotidine (Pepcid Injection) 20 mg ONCE ONCE IV 03/30/25 06:45 03/30/25 06:46 DC 03/30/25 08:07 Time of 1ST Reevaluation: 07:00 Reevaluation 1ST: Unchanged Patient Education/Counseling: Diagnosis, Treatment, Need For Follow Up Family Education/Counseling: No Family Present Departure 1 Departure Time of Disposition: 09:29 (Patient likely with gastroenteritis. Patient is feeling better and tolerating p.o.. We will discharge patient home with outpatient follow up) Impression: Primary Impression: Acute gastroenteritis Disposition: 01 HOME / SELF CARE / HOMELESS Condition: Stable Additional Instructions: You likely have gastroenteritis. It is important to stay well hydrated and well rested. This usually resolves within 1 week. If your symptoms worsen or you have any other concerns please return to the ER. e-Prescriptions Ondansetron Odt 4MG Tab (ZOFRAN PO) 4 Mg Tb 4 MG PO TID PRN for 4 Days, #12 TAB ODT TAB-DISSOLVE IN MOUTH, THEN SWALLOW Prov: REYNALDO GARCIA MD 03/30/25 Discharged With: Self Critical Care Note Critical Care Time?: No Stability Stability form required: No Heart Score Heart Score: Heart Score Response (Comments) Value History N/A 0 EKG N/A 0 Age N/A 0 Risk Factors N/A 0 Troponin N/A 0 Total 0 I personally scribed for REYNALDO GARCIA MD ([email or web address]) on 03/30/25 at 06:37. Electronically submitted by Charly Edward ([email or web address]). REYNALDO GARCIA MD Mar 30, 2025 06:37
[2025-03-30 07:09] LABS: Basophils # (auto) 0 10 ^3/uL (0-0.2); Basophils % (auto) 0.4 % (0.0-2.0); Eosinophils # (auto) 0 10 ^3/uL (0-0.8); Eosinophils % (auto) 0.2 % (0.0-7.0); Hematocrit 40.9 % (36.0-46.0); Hemoglobin 14.1 g/dL (12.2-16.2); Lymphocytes # (auto) 1.4 10 ^3/uL (0.4-5.4); Lymphocytes % (auto) 12.8 % (10.0-50.0); Mean Corpuscular Hemoglobin 30.9 pg (28.0-32.0); Mean Corpuscular Hgb Conc. 34.5 g/dL (32.0-36.0); Mean Corpuscular Volume 89.6 fL (80.0-100.0); Monocytes # (auto) 0.4 10 ^3/uL (0-1.3); Monocytes % (auto) 3.4 % (0.0-12.0); Neutrophils # (auto) 9.1 10 ^3/uL (1.6-8.6); Neutrophils % (auto) 83.2 % (37.0-80.0); Nucleated Red Blood Cells % 0.1 %; Platelet Count (auto) 295 10^3/uL (140-450); Red Blood Cells 4.57 10^6/uL (4.0-5.20); Red Cell Distribution Width 13.3 % (11.8-14.3)
[2025-03-30 07:23] LABS: Potassium 3.6 mmol/L (3.5-5.1)
[2025-03-30 07:24] LABS: Anion Gap 15 (5-15); Calcium 10.2 mg/dL (8.7-10.4); Carbon Dioxide 22 mmol/L (20-31)
[2025-03-30 07:26] VITALS: BP 98/63; PULSE 79; RESP 16; TEMP 98.4; O2SAT 99
[2025-03-30 07:27] LABS: Chloride 108 mmol/L (98-107); Sodium 145 mmol/L (136-145)
[2025-03-30 07:29] LABS: BUN/Creatinine Ratio 7.7 (10.0-20.0)
[2025-03-30 07:30] LABS: Blood Urea Nitrogen 6 mg/dL (9-23); Glucose 108 mg/dL (74-106)
[2025-03-30] MEDS: SODIUM CHLORIDE 0.9% 1,000 ML IV ONE (08:07)
[2025-03-30] MEDS: METOCLOPRAMIDE HCL 5MG/ml INJ 2ml VIAL IV ONE (08:07)
[2025-03-30] MEDS: FAMOTIDINE (10MG/ML) 2ML VL IV ONE (08:07)
[2025-03-30] MEDS ORDERED: ZOFR4T PO (09:30)
== END 2025-03-30 09:41 | disposition home or self-care (01) ==
LOC: EDUNIT# 06:14 → ER 06:14 → EDBD 06:14 → ER 09:41
DX: K52.9 Noninfective gastroenteritis and colitis, unspecified (principal); Z87.440 Personal history of urinary (tract) infections; Z98.890 Other specified postprocedural states
CPT/HCPCS: 36415; 80048; 85025; 96361; 96374; 96375; 99284; J2765; J3490; J7030